=== PATIENT | female | born 1935 | race Caucasian/White ===

== ENCOUNTER 2024-07-18 09:09 | Emergency (ER) | payer OTHER, SELFPAY ==
[2024-07-18 09:30] VITALS: BP 164/107; PULSE 84; RESP 18; TEMP 36.8; O2SAT 96; BMI 27.6
--- NOTE | 2024-07-18 09:36 | DI.RAD.S_ITS ---
PROCEDURE: XR LUMBAR SPINE 2-3V INDICATIONS: fall 3 weeks ago. TECHNIQUE: 3 views of the lumbar spine were acquired. COMPARISON: None. FINDINGS: Bones: There is leftward spinal curvature. Trace anterolisthesis of L4 on L5, probably degenerative. 9 mm of L1 on L2 retrolisthesis also seen. [id number] overall degenerative changes. No vertebral body height loss Soft tissues: Vascular calcifications. Hip degenerative changes. IMPRESSION: [id number] degenerative changes. Leftward spinal curvature. Multilevel spondylolisthesis notably with 9 mm of L1 on L2 retrolisthesis. No acute vertebral body height loss. If there is high concern for further derangement, consider MRI evaluation. Dictated by: Jacob Clark M.D. on 07/18/2024 at 9:59 Approved by: Jacob Clark M.D. on 07/18/2024 at 10:01
--- NOTE | 2024-07-18 12:27 | ED_ITS ---
HPI - Fall <Lily Paredes PA-C - Last Filed: 07/18/24 19:25> General Chief Complaint: Fall Stated Complaint: Fell, having Lower back pain Time Seen by Provider: 07/18/24 09:58 Source: patient and family Mode of arrival: Family Vehicle History of Present Illness HPI Narrative: Ms. Rdz is an 89 year old female with a past medical history of colon cancer 15 years ago who presents to the emergency department for back pain after a fall 3 weeks ago. 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 States that she had mild low back pain that was exacerbated 1 week later after seeing a chiropractor. States that the pain has been worse since seeing two different chiropracters which prompted her arrival today. Describes midline low back pain and right-sided low back pain. States the pain occasionally feels like a muscle spasm. Denies bowel or bladder incontinence, dysuria, hematuria, melena, lower leg numbness/tingling/weakness, history of IV drug use, fevers, chills, chest pain, shortness of breath, abdominal pain. Related Data Previous Rx's Medication Instructions Recorded cephalexin 500 mg capsule 500 mg PO TID 7 days #21 caps 07/18/24 Allergies Allergy/AdvReac Type Severity Reaction Status Date / Time No Known Drug Allergies Allergy Verified 07/18/24 09:36 Review of Systems <Lily Paredes PA-C - Last Filed: 07/18/24 19:25> Review of Systems ROS Unobtainable: All systems reviewed & are unremarkable except as noted in HPI and below Patient History <Lily Paredes PA-C - Last Filed: 07/18/24 19:25> Social History Smoking Status: Never smoker Smoking Status: Never smoker alcohol intake frequency: 0-2 drinks per day Alcohol type: wine Substance Use Type: does not use Exam <Lily Paredes PA-C - Last Filed: 07/18/24 19:25> Narrative Exam Narrative: GENERAL: 89 year old patient appears stated age. Well-developed patient, in no acute distress. HEAD: Atraumatic. Normocephalic. EYES: Extraocular motions intact. No scleral icterus. No injection or drainage. ENT: Nose without bleeding, purulent drainage. Airway patent. NECK: Trachea midline. CARDIOVASCULAR: Regular rate and rhythm. RESPIRATORY: Clear to auscultation. Breath sounds equal bilaterally. No wheezes, rales, or rhonchi. GASTROINTESTINAL: Abdomen soft, non-tender, nondistended. EXTREMITIES: No edema or joint tenderness. BACK: Generalized TTP in the lumbar region. No palpable step-offs or deformities. Negative SLR bilaterally. NEURO: AOx3. SITLT throughout lower extremities. 5/5 BL knee flex/ext strength. Ambulates steady with walker. SKIN: No rash or erythema of visible areas Initial Vital Signs Initial Vital Signs: Vital Signs Temperature 98.2 F 07/18/24 09:30 Pulse Rate 84 07/18/24 09:30 Respiratory Rate 18 07/18/24 09:30 Blood Pressure 164/107 H 07/18/24 09:30 Pulse Oximetry 96 07/18/24 09:30 Oxygen Delivery Method Room Air 07/18/24 09:30 <Salma Bennett MD - Last Filed: 07/23/24 07:11> Initial Vital Signs Initial Vital Signs: Vital Signs Temperature 98.2 F 07/18/24 09:30 Pulse Rate 84 07/18/24 09:30 Respiratory Rate 18 07/18/24 09:30 Blood Pressure 164/107 H 07/18/24 09:30 Pulse Oximetry 96 07/18/24 09:30 Oxygen Delivery Method Room Air 07/18/24 09:30 Course <Lily Paredes PA-C - Last Filed: 07/18/24 19:25> Orders Ordered: Discontinued Medications Acetaminophen (Acetaminophen 325 Mg Tablet) 975 mg PO NOW ONE Stop: 07/18/24 12:53 Last Admin: 07/18/24 13:02 Dose: 975 mg Documented By: DESIRE Methocarbamol (Methocarbamol 500 Mg Tablet) 500 mg PO NOW ONE Stop: 07/18/24 12:53 Last Admin: 07/18/24 13:02 Dose: 500 mg Documented By: DESIRE Vital Signs Vital signs: Vital Signs - 8 hr 07/18/24 15:25 Pulse Rate 77 Respiratory Rate 17 Blood Pressure 168/102 H Pulse Oximetry 95 Oxygen Delivery Method Room Air <Salma Bennett MD - Last Filed: 07/23/24 07:11> Orders Ordered: Discontinued Medications Acetaminophen (Acetaminophen 325 Mg Tablet) 975 mg PO NOW ONE Stop: 07/18/24 12:53 Last Admin: 07/18/24 13:02 Dose: 975 mg Documented By: DESIRE Methocarbamol (Methocarbamol 500 Mg Tablet) 500 mg PO NOW ONE Stop: 07/18/24 12:53 Last Admin: 07/18/24 13:02 Dose: 500 mg Documented By: DESIRE Vital Signs Vital signs: Vital Signs - 8 hr 07/18/24 15:25 Pulse Rate 77 Respiratory Rate 17 Blood Pressure 168/102 H Pulse Oximetry 95 Oxygen Delivery Method Room Air MDM - Fall <Lily Paredes PA-C - Last Filed: 07/18/24 19:25> Lab Data Labs: Lab Results 07/18/24 Range/Units 13:50 Urine RBC None seen (0-5/HPF) Urine WBC 0-1/hpf (0-5/HPF) Ur Squamous Epith Cells None seen (0-5/HPF) Urine Bacteria Many (>30) H (None) Ur Culture Indicated? Specimen cultured Vol Urine Centrifuged 10ml (spun) Urine Dip Bedside Urine Glucose Negative Bedside Urine Bilirubin - Negative Bedside Urine Ketone + 15 Urine Specific [place] 1.020 Bedside Urine Occult Blood ++ Bedside Urine pH 5.5 Bedside Urine Protein - Negative Bedside Urine Urobilinogen - Negative Bedside Urine Nitrite + Positive Bedside Urine Leukocytes - Negative Esterase Imaging Data CT Lumbar Spine: My Impression: Defer to radiologist impression. Radiologist's Impression: FINDINGS: Image quality: Excellent. Bones and discs: There is exaggeration of the lumbar lordosis with moderate retrolisthesis of L1 on L2. There is also mild levoscoliosis of the lumbar spine.. No acute vertebral body compression fractures. No suspicious lytic or blastic bony lesions. No pars defects. There is near complete intervertebral disc height loss at L1- L2. Moderate to severe disc height loss is seen at T11-T12 and T12-L1. T12-L1: No spinal canal stenosis or neural foraminal stenosis. L1-L2: Retrolisthesis of L1 on L2 results and mild spinal canal stenosis and severe right and moderate left neural foraminal stenosis. L2-L3: No central canal stenosis. Facet arthropathy resulting in moderate right neural foraminal stenosis. L3-L4: Mild disc bulge and facet arthropathy resulting in mild central canal stenosis and mild bilateral neural foraminal stenosis. L4-L5: No central canal stenosis. Lateral projecting disc bulge and facet arthropathy resulting in moderate bilateral neural foraminal stenosis. L5-S1: No spinal canal stenosis or neural foraminal stenosis. Soft tissues: Severe sigmoid colon diverticulosis without evidence of diverticulitis. No retroperitoneal masses or hematomas. Visualized aorta is normal in caliber with scattered moderate atheromatous calcification. 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 No acute traumatic injury. MDM Narrative Medical decision making narrative: 89-year-old female who presents to the emergency department for low back pain after a fall 3 weeks ago. Pain has been exacerbated since the fall by chiropractic manipulation. Differential diagnosis includes but is not limited to lumbar fracture, lumbar strain, spinal stenosis, degenerative disc disease, UTI, etc. On my physical exam, patient is ambulatory with a walker. She had a lumbar x- ray done in the waiting room however due to her history of cancer and lumbar tenderness we will obtain CT & UA. We will treat with Tylenol and Robaxin in the ED. Patient's lumbar CT reveals no acute traumatic injury. She does have neural foraminal stenosis which is severe on the right at L1-L2, moderate on the left at L1-L2, moderate on the right at L2-L3, and moderate bilaterally L4-L5. Discussed these findings with the patient and her daughter and provided them with a printout of the imaging results. Patient is ambulatory and her pain is improved. No lower extremity weakness or bowel or bladder incontinence. Patient's UA did reveal UTI. We will treat patient's UTI with cephalexin, and recommended orthopedic surgery follow-up for her lumbar pain. Recommended supportive care with gentle stretching, heat therapy, ibuprofen/Tylenol. Discussed signs and symptoms to return to the ED for such as bowel or bladder incontinence, lower leg numbness/tingling/weakness, fever/chills, etc. Patient and her daughter are agreeable to the plan, all questions answered, stable for discharge. <Salma Bennett MD - Last Filed: 07/23/24 07:11> Lab Data Labs: Lab Results 07/18/24 Range/Units 13:50 Urine RBC None seen (0-5/HPF) Urine WBC 0-1/hpf (0-5/HPF) Ur Squamous Epith Cells None seen (0-5/HPF) Urine Bacteria Many (>30) H (None) Ur Culture Indicated? Specimen cultured Vol Urine Centrifuged 10ml (spun) Urine Dip Bedside Urine Glucose Negative Bedside Urine Bilirubin - Negative Bedside Urine Ketone + 15 Urine Specific [place] 1.020 Bedside Urine Occult Blood ++ Bedside Urine pH 5.5 Bedside Urine Protein - Negative Bedside Urine Urobilinogen - Negative Bedside Urine Nitrite + Positive Bedside Urine Leukocytes - Negative Esterase Discharge Plan Departure Patient Disposition: Home Clinical Impression: Lumbar foraminal stenosis, Acute UTI Fall Qualifiers: Encounter type: initial encounter Qualified Code(s): W19.XXXA - Unspecified fall, initial encounter Instructions: DI for Low Back Pain, DI for Urinary Tract Infection (UTI) Activity Restrictions/Additional Instructions: Please follow up with your primary care doctor within the next week. Call [facility] at for further management of your low back pain. You may take 400 mg of ibuprofen every 6-8 hours alternating with 1000 mg of Tylenol every 6-8 hours for pain. Please rest, use heat therapy, gentle stretching and gentle exercise. Return to the ER if you develop any new or worsening symptoms, fevers, chills, lower leg weakness, or other concerns. Prescriptions: New cephalexin 500 mg capsule 500 mg PO TID 7 Days Qty: 21 0RF Referrals: Elvia Rai MD [Primary Care Provider] - Stand Alone Forms: Patient Portal/API/Survey ED Sign-out <Salma Bennett MD - Last Filed: 07/23/24 07:11> Cosign ED Attending Cosignature Attestation: I was immediately available in the department for consultation throughout this patient's visit. Salma Bennett MD
--- NOTE | 2024-07-18 12:51 | DI.CT.S_ITS ---
PROCEDURE: CT LUMBAR SPINE WO CON INDICATIONS: fall; lumbar pain TECHNIQUE: Noncontrast 3 mm thick sections acquired from the T12 level to the sacrum. Sagittal and coronal reformats were constructed. For radiation dose reduction, the following was used: automated exposure control. COMPARISON: None. FINDINGS: Image quality: Excellent. Bones and discs: There is exaggeration of the lumbar lordosis with moderate retrolisthesis of L1 on L2. There is also mild levoscoliosis of the lumbar spine.. No acute vertebral body compression fractures. No suspicious lytic or blastic bony lesions. No pars defects. There is near complete intervertebral disc height loss at L1-L2. Moderate to severe disc height loss is seen at T11-T12 and T12-L1. T12-L1: No spinal canal stenosis or neural foraminal stenosis. L1-L2: Retrolisthesis of L1 on L2 results and mild spinal canal stenosis and severe right and moderate left neural foraminal stenosis. L2-L3: No central canal stenosis. Facet arthropathy resulting in moderate right neural foraminal stenosis. L3-L4: Mild disc bulge and facet arthropathy resulting in mild central canal stenosis and mild bilateral neural foraminal stenosis. L4-L5: No central canal stenosis. Lateral projecting disc bulge and facet arthropathy resulting in moderate bilateral neural foraminal stenosis. L5-S1: No spinal canal stenosis or neural foraminal stenosis. Soft tissues: Severe sigmoid colon diverticulosis without evidence of diverticulitis. No retroperitoneal masses or hematomas. Visualized aorta is normal in caliber with scattered moderate atheromatous calcification. 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 No acute traumatic injury. Dictated by: Hector Perry M.D. on 07/18/2024 at 13:39 Approved by: Hector Perry M.D. on 07/18/2024 at 13:52
[2024-07-18] MEDS: ACETAMINOPHEN 325 MG TABLET 975 MG PO (13:02)
[2024-07-18] MEDS: methocarbamoL 500 MG TABLET PO (13:02)
[2024-07-18 14:45] LABS: Urine Volume 10mL (spun)
[2024-07-18 14:48] LABS: Bacteria Urine Many (>30); RBC Urine None Seen (0-5/HPF); Squamous Epithelial Cell Urine None Seen (0-5/HPF); WBC Urine 0-1/HPF (0-5/HPF)
[2024-07-18 14:49] LABS: Culture Indicated Urine Specimen Cultured
[2024-07-18 15:25] VITALS: BP 168/102; PULSE 77; RESP 17; O2SAT 95
== END 2024-07-18 15:27 | disposition home or self-care (01) ==
PROVIDERS: Emergency Provider Physician Assistant; PCP Family Medicine
DX: M48.061 Spinal stenosis, lumbar region without neurogenic claudication (principal); N39.0 Urinary tract infection, site not specified; W18.30XA Fall on same level, unspecified, initial encounter
CPT/HCPCS: 72100; 72131; 81003; 81015; 87077; 87086; 87186; 99283; 99284; Q9967